=== PATIENT | male | born 1995 | race Caucasian/White ===

== ENCOUNTER 2024-02-28 07:30 | Emergency (ER) | payer BC ==
[2024-02-28] MEDS ORDERED: Lidocaine 1% PF 5 ML VIAL ONE (07:47)
[2024-02-28] MEDS ORDERED: Boostrix 0.5 ML (Tdap) VIAL (>/=7 yrs of age) ONE (08:14)
== END 2024-02-28 08:24 | disposition home or self-care (01) ==
LOC: ERS 07:30 → EEVIPCON 07:30 → ERS 08:24
DX: S01.511A Laceration without foreign body of lip, initial encounter (principal); Z23 Encounter for immunization; F17.290 Nicotine dependence, other tobacco product, uncomplicated
CPT/HCPCS: 12011; 90715; 99282